=== PATIENT | male | born 1960 | race Caucasian/White ===

== ENCOUNTER 2017-04-14 09:09 | Emergency (ER) | payer BC, OTHER ==
[~2017-04-14] VITALS: Ht 172.7 cm; Wt 80.4 kg
[~2017-04-14 09:09] MED LIST: LRT5 PO
[2017-04-14 09:15] VITALS: TEMP 36.5; Ht 172.7 cm; Wt 80.4 kg
[2017-04-14] MEDS ORDERED: KETOROLAC TROMETHAMINE 30 MG/ML VIAL IV STA (09:48)
[2017-04-14] MEDS ORDERED: MULT-506 PO (09:52)
[2017-04-14] MEDS ORDERED: OMEG10007 PO (09:52)
[2017-04-14] MEDS ORDERED: ASPCH81X PO (09:52)
[2017-04-14 10:13] LABS: BASO % 0.6 %; BASO ABS # 0.05 K/uL (0-0.2); COMPLETE YES; EOS % 1.8 %; HEMATOCRIT 47.5 % (42-52); IG% 0.1 %; LYMPH % 17.5 %; LYMPH ABS # 1.43 K/uL (1.2-3.4); MEAN CELL VOLUME 92.4 fL (80-100); MEAN CORPUSCULAR HEMOGLOBIN 31.7 pg (25-34); MEAN CORPUSCULAR HGB CONC 34.3 g/dl (32-36); MEAN PLATELET VOLUME 11.2 fL (7.4-10.4); MONO % 9.1 %; NEUT % 70.9 %; PLATELET COUNT 205 K/uL (130-400); RED BLOOD COUNT 5.14 M/uL (4.7-6.1); WHITE BLOOD COUNT 8.17 K/uL (4.8-10.8)
--- NOTE | 2017-04-14 10:26 | DIAGNOSTIC IMAGING REPORT ---
CT SCAN OF THE ABDOMEN AND PELVIS WITHOUT IV CONTRAST CLINICAL HISTORY: Low back pain. Dysuria. COMPARISON STUDY: No priors. TECHNIQUE: CT scan of the abdomen and pelvis is performed from the lung bases to the proximal femora. Images are reviewed in the axial, sagittal, and coronal planes. IV contrast was not administered for this examination. Automated dose control exposure was utilized. CT DOSE: 768.68 mGy.cm FINDINGS: Lung bases: The heart is enlarged and without pericardial effusion. A calcified granulomas noted in the right lung base. The lung bases are otherwise clear. There is a tiny hiatal hernia. Liver: The unenhanced liver is mildly enlarged measuring 19.5 cm in length. The liver is normal in contour and attenuation. There is no intrahepatic biliary ductal dilatation. Numerous hepatic cysts measure up to 1.4 cm. Too numerous to count additional subcentimeter hepatic hypodensities also likely represent cysts or biliary hamartomas. Gallbladder: Unremarkable. Spleen: Normal in size and attenuation. Pancreas: Unremarkable. Adrenal glands: Unremarkable. Kidneys: The unenhanced kidneys are normal in size. There is a 5 mm obstructing calculus at the left vesicoureteral junction seen on image #371. This causes mild to moderate left-sided hydroureteronephrosis. No additional left renal calculi are identified. There is mild associated left-sided perinephric stranding. No right renal calculi are seen and there is no right-sided hydronephrosis. There are no renal calculi identified. 1.5 cm cyst is noted in the left upper pole. Abdominal vasculature: The abdominal aorta is normal in course and caliber noting mild atherosclerotic calcification. Bowel: The small bowel and colon are normal in course and caliber. The appendix is well-visualized and normal. Peritoneum: There is no intraperitoneal free air or abdominal ascites. There is a small fat-containing umbilical hernia. Lymphadenopathy: None. Pelvic viscera: The bladder, bladder, prostate, and seminal vesicles are normal as imaged. Skeletal structures: No lytic or blastic lesions are seen. Spondylotic change with endplate sclerosis is seen at L5-S1. IMPRESSION: 1. There is a 5 mm obstructing calculus at the left vesicoureteral junction. This causes mild to moderate left-sided hydroureteronephrosis. 2. No additional calculi are seen either kidney. 3. Cardiomegaly. 4. There are numerous small hepatic cysts. Numerous additional subcentimeter hepatic hypodensities likely represent cysts or biliary hamartomas. These are of doubtful significance if there is no cancer history. 5. Additional findings as above. Electronically signed by: Kristian Ulloa M.D. 04/14/2017 10:25 AM Dictated Date/Time: 04/14/2017 10:18 AM
[2017-04-14 10:29] LABS: BUN/CREATININE RATIO 13.9 (10-20); CALCIUM 10.1 mg/dl (8.5-10.1); CREATININE 1.1 mg/dl (0.60-1.40); POTASSIUM 3.8 mmol/L (3.5-5.1)
[2017-04-14 10:32] LABS: URINE APPEARANCE CLEAR (CLEAR); URINE BILIRUBIN NEG (NEG); URINE COLOR YELLOW; URINE NITRITE NEG (NEG); URINE SPECIFIC GRAVITY 1.018 (1.000-1.030); UROBILINOGEN NEG (NEG); ZZUR CULT IF INDIC CLEAN CATCH NO
[2017-04-14 10:35] LABS: MANUAL MICROSCOPIC REQUIRED? NO; REVIEW REQ? NO
[2017-04-14] MEDS ORDERED: TAMS0.4C38 PO (11:01)
[2017-04-14] MEDS ORDERED: OXYC1TAB3 PO (11:01)
--- NOTE | 2017-04-14 11:02 | EMERGENCY ROOM VISIT NOTE ---
History First contact with patient: 09:21 Chief Complaint: BACK PAIN Stated Complaint: PAIN IN LOWER BACK - POSSIBLE KIDNEY STONES History of Present Illness The patient is a 57 year old male who presents to the Emergency Room with complaints of left low back pain which started on . The patient denies any specific injury but does admit that he was lifting heavy cement bags prior to the onset of his symptoms. He states he has had 3 episodes of increased pain in the left lower back. He denies any nausea or vomiting. The patient took Tylenol this morning with some relief of the pain. He has an appointment scheduled with his family doctor at 11 AM today the states since the pain was intense this morning he decided to come to the emergency room. The patient also admits to some dysuria but denies any hematuria, urgency or frequency. The patient denies any history of kidney stones. The patient denies any urethral discharge, or history of STDs. Review of Systems 10 system review was performed and was negative unless stated otherwise history of present illness. Past Medical/Surgical History Ankle surgery, hernia repair, knee surgery Social History Smoking Status: Never Smoker Smokeless Tobacco Use: No Alcohol Use: none Drug Use: none Marital Status: Housing Status: lives with family Occupation Status: employed Current/Historical Medications Scheduled Aspirin (Aspirin Chewable), 81 MG PO DAILY Multivitamin (Multivitamin), 1 TAB PO DAILY Tamsulosin Hcl (Flomax), 0.4 MG PO DAILY Scheduled PRN Oxycodone Immediate Rel Tab (Roxicodone Ir), 1-2 TAB PO Q6 PRN for Pain Miscellaneous Medications Fish Oil (Letha-3), 1 CAP PO Allergies Coded Allergies: No Known Allergies (Unverified , 04/14/17) Physical Exam Vital Signs Date Time Temp Pulse Resp B/P (MAP) Pulse Ox O2 Delivery O2 Flow Rate FiO2 04/14/17 10:44 85 16 147/94 98 Room Air 04/14/17 09:15 36.5 64 18 151/79 97 Room Air Physical Exam GENERAL: 57-year-old white male appears in no acute distress. MENTAL Status: Alert and oriented 3. MOUTH: Mucosa is moist NECK: Supple, no lymphadenopathy noted. No carotid bruits noted. LUNGS: Clear auscultation without wheezes rales or rhonchi. CARDIAC: Regular rate and rhythm without murmur. Pulses is full and equal throughout. BACK: No CVA tenderness noted. ABDOMEN: Positive bowel sounds all 4 quadrants. Soft, nontender to palpation without organomegaly or masses. LUMBAR SPINE: No gross bony deformity noted. The patient is nontender to palpation over the spinous processes. He has tenderness to palpation in the lower left paravertebral region. Right side nontender. Full range of motion with minimal pain elicited. Negative straight leg raise bilaterally. Patient is able to heel and toe walk without difficulty. Bilateral patellar and Achilles reflexes are 2+. Muscle strength is 5 out of 5 bilateral lower extremities and symmetrical. EXTREMITIES: No cyanosis or edema noted. Medical Decision & Procedures ER Provider Diagnostic Interpretation: CT SCAN OF THE ABDOMEN AND PELVIS WITHOUT IV CONTRAST CLINICAL HISTORY: Low back pain. Dysuria. COMPARISON STUDY: No priors. TECHNIQUE: CT scan of the abdomen and pelvis is performed from the lung bases to the proximal femora. Images are reviewed in the axial, sagittal, and coronal planes. IV contrast was not administered for this examination. Automated dose control exposure was utilized. CT DOSE: 768.68 mGy.cm FINDINGS: Lung bases: The heart is enlarged and without pericardial effusion. A calcified granulomas noted in the right lung base. The lung bases are otherwise clear. There is a tiny hiatal hernia. Liver: The unenhanced liver is mildly enlarged measuring 19.5 cm in length. The liver is normal in contour and attenuation. There is no intrahepatic biliary ductal dilatation. Numerous hepatic cysts measure up to 1.4 cm. Too numerous to count additional subcentimeter hepatic hypodensities also likely represent cysts or biliary hamartomas. Gallbladder: Unremarkable. Spleen: Normal in size and attenuation. Pancreas: Unremarkable. Adrenal glands: Unremarkable. Kidneys: The unenhanced kidneys are normal in size. There is a 5 mm obstructing calculus at the left vesicoureteral junction seen on image #371. This causes mild to moderate left-sided hydroureteronephrosis. No additional left renal calculi are identified. There is mild associated left-sided perinephric stranding. No right renal calculi are seen and there is no right-sided hydronephrosis. There are no renal calculi identified. 1.5 cm cyst is noted in the left upper pole. Abdominal vasculature: The abdominal aorta is normal in course and caliber noting mild atherosclerotic calcification. Bowel: The small bowel and colon are normal in course and caliber. The appendix is well-visualized and normal. Peritoneum: There is no intraperitoneal free air or abdominal ascites. There is a small fat-containing umbilical hernia. Lymphadenopathy: None. Pelvic viscera: The bladder, bladder, prostate, and seminal vesicles are normal as imaged. Skeletal structures: No lytic or blastic lesions are seen. Spondylotic change with endplate sclerosis is seen at L5-S1. IMPRESSION: 1. There is a 5 mm obstructing calculus at the left vesicoureteral junction. This causes mild to moderate left-sided hydroureteronephrosis. 2. No additional calculi are seen either kidney. 3. Cardiomegaly. 4. There are numerous small hepatic cysts. Numerous additional subcentimeter hepatic hypodensities likely represent cysts or biliary hamartomas. These are of doubtful significance if there is no cancer history. 5. Additional findings as above. Electronically signed by: Kristian Ulloa M.D. 04/14/2017 10:25 AM Dictated Date/Time: 04/14/2017 10:18 AM Laboratory Results 04/14/17 09:53 Red Blood Count 5.14, Mean Corpuscular Volume 92.4, Mean Corpuscular Hemoglobin 31.7, Mean Corpuscular Hemoglobin Concent 34.3, Mean Platelet Volume 11.2, Neutrophils (%) (Auto) 70.9, Lymphocytes (%) (Auto) 17.5, Monocytes (%) (Auto) 9.1, Eosinophils (%) (Auto) 1.8, Basophils (%) (Auto) 0.6, Neutrophils # (Auto) 5.79, Lymphocytes # (Auto) 1.43, Monocytes # (Auto) 0.74, Eosinophils # (Auto) 0.15, Basophils # (Auto) 0.05 04/14/17 09:53 Test 04/14/17 09:41 04/14/17 09:53 Urine Color YELLOW Urine Appearance CLEAR (CLEAR) Urine pH 6.0 (4.5-7.5) Urine Specific [place] 1.018 (1.000-1.030) Urine Protein NEG (NEG) Urine Glucose (UA) NEG (NEG) Urine Ketones NEG (NEG) Urine Occult Blood NEG (NEG) Urine Nitrite NEG (NEG) Urine Bilirubin NEG (NEG) Urine Urobilinogen NEG (NEG) Urine Leukocyte Esterase NEG (NEG) White Blood Count 8.17 K/uL (4.8-10.8) Red Blood Count 5.14 M/uL (4.7-6.1) Hemoglobin 16.3 g/dL (14.0-18.0) Hematocrit 47.5 % (42-52) Mean Corpuscular Volume 92.4 fL (80-100) Mean Corpuscular Hemoglobin 31.7 pg (25-34) Mean Corpuscular Hemoglobin Concent 34.3 g/dl (32-36) Platelet Count 205 K/uL (130-400) Mean Platelet Volume 11.2 fL (7.4-10.4) Neutrophils (%) (Auto) 70.9 % Lymphocytes (%) (Auto) 17.5 % Monocytes (%) (Auto) 9.1 % Eosinophils (%) (Auto) 1.8 % Basophils (%) (Auto) 0.6 % Neutrophils # (Auto) 5.79 K/uL (1.4-6.5) Lymphocytes # (Auto) 1.43 K/uL (1.2-3.4) Monocytes # (Auto) 0.74 K/uL (0.11-0.59) Eosinophils # (Auto) 0.15 K/uL (0-0.5) Basophils # (Auto) 0.05 K/uL (0-0.2) RDW Standard Deviation 42.3 fL (36.4-46.3) RDW Coefficient of Variation 12.6 % (11.5-14.5) Immature Granulocyte % (Auto) 0.1 % Immature Granulocyte # (Auto) 0.01 K/uL (0.00-0.02) Anion Gap 7.0 mmol/L (3-11) Est Creatinine Clear Calc Drug Dose 73.4 ml/min Estimated GFR () 87.1 Estimated GFR (Non- 75.2 BUN/Creatinine Ratio 13.9 (10-20) Calcium Level 10.1 mg/dl (8.5-10.1) Medications Administered Medications (Trade) Dose Ordered Sig/Luis Route Start Time Stop Time Status Last Admin Dose Admin Ketorolac Tromethamine (Toradol Inj) 30 mg NOW STAT IV 04/14/17 09:48 04/14/17 09:49 DC 04/14/17 09:52 30 MG ED Course The patient was evaluated. The patient's EMR and medication list were reviewed. IV access was obtained. CBC and differential, renal ,urinalysis was ordered. The patient was given Toradol 30 mg IV for pain. CT stone so he was ordered and interpreted by the radiologist as above with evidence of a 5 mm stone at the left UV junction with mild hydronephrosis. The patient was informed of the findings. Labs are reviewed and were unremarkable. Urinalysis was negative. The patient was reevaluated on several occasions throughout his emergency room stay. The patient was discharged home in stable condition. Medical Decision Differential diagnosis include lumbar strain, sciatica, UTI, ureteral calculi, diverticulitis Impression Primary Impression: Ureteral calculus, left Departure Information Dispostion Home / Self-Care Condition GOOD Prescriptions Oxycodone Immediate Rel Tab (ROXICODONE IR) 5 Mg Tab 1-2 TAB PO Q6 Y for Pain, #20 TAB Prov: Lily Smith PA-C 04/14/17 Tamsulosin Hcl (FLOMAX) 0.4 Mg Cap 0.4 MG PO DAILY for 7 Days, #7 CAP Prov: Lily Smith PA-C 04/14/17 Referrals Emigdio Jimenez M.D. (PCP) Forms HOME CARE DOCUMENTATION FORM, IMPORTANT VISIT INFORMATION Patient Instructions Kidney Stones - [facility], [facility] Additional Instructions Strain all urine. Push fluids. Take Flomax daily as prescribed. Ibuprofen 600 mg every 6 hours with food for pain. Take OxyIR as needed for more severe pain. Do not drive while taking the OxyIR. Take Zofran as needed for nausea. If you do not pass the stone in 5-7 days recommend follow-up with Dr. La, urology. if symptoms worsen in the interim, return to ER.
[2017-04-14] MEDS ORDERED: ONDANSETRON INJ 2 MG/ML 2 ML VIAL IV STA (11:03)
[2017-04-14] MEDS ORDERED: ONDA4TAB10 SL (11:05)
[2017-04-14 11:30] VITALS: BP 134/78; PULSE 55; O2SAT 96
--- NOTE | 2017-04-18 11:32 | Pharmacy Progress Note ---
ED Pharmacist Progress Note Date of Service: Apr 18, 2017. Patient called today with concern that he is running out of Zofran ODT and the weekend is approaching. He does not have an appointment to see his urologist until Friday. He does not believe he has passed the kidney stone and was requesting a refill on just the Zofran. I reviewed the case with Dr Adrian, who was agreeable to give the patient an additional 10 tablets with the same dose and directions. I called in Rx to [facility] ([phone]) for: Zofran 4mg ODT 1 tab SL Q 6 hrs PRN nausea/vomiting # 10, No Refills, auth by Dr Donaldo Adrian.
== END 2017-04-14 11:35 | disposition home or self-care (01) ==
LOC: C.EDB 09:11
DX: N20.1 Calculus of ureter (principal); Z98.890 Other specified postprocedural states; Z79.82 Long term (current) use of aspirin

== ENCOUNTER → 2017-04-21 | Outpatient (CLI) | payer OTHER ==
[~2017-04-21] MED LIST changes: +ASPCH81X PO; -LRT5 PO; +MULT-506 PO; +OMEG10007 PO; +ONDA4TAB10 SL; +OXYC1TAB3 PO; +TAMS0.4C38 PO
--- NOTE | 2017-04-21 18:48 | DIAGNOSTIC IMAGING REPORT ---
CHEST 2 VIEWS ROUTINE CLINICAL HISTORY: Preoperative evaluation. Nephrolithiasis. COMPARISON STUDY: Chest radiograph March 20, 2009. FINDINGS: Lung volumes are normal. There is no consolidation to suggest pneumonia and there is no evidence of pulmonary edema. Cardiac size is normal. Mediastinal contours are normal. IMPRESSION: No acute cardiopulmonary findings. Electronically signed by: Cisco Dao M.D. 04/21/2017 6:47 PM Dictated Date/Time: 04/21/2017 6:46 PM
--- NOTE | 2017-04-21 18:50 | DIAGNOSTIC IMAGING REPORT ---
KUB CLINICAL HISTORY: Nephrolithiasis. COMPARISON STUDY: CT of the abdomen and pelvis April 14, 2017. FINDINGS: The 5 mm distal left ureteral calculus shown on CT of April 14, 2017 is not visualized on this examination. A right pelvic calcification represents a phlebolith. Bowel gas pattern is normal. No urinary calculi are identified. IMPRESSION: No urinary calculi identified. The 5 mm distal left ureteral calculus shown on prior CT is not visualized on this exam. Electronically signed by: Cisco Dao M.D. 04/21/2017 6:48 PM Dictated Date/Time: 04/21/2017 6:47 PM
== END | disposition home or self-care (01) ==
LOC: C.RAD 17:55
PROVIDERS: ATTEND Urology
DX: N20.0 Calculus of kidney (principal)

== ENCOUNTER → 2017-04-25 | Day surgery (SDC) | payer OTHER ==
[2017-04-23 10:21] VITALS: Ht 172.7 cm; Wt 77.3 kg
[~2017-04-25] VITALS: Ht 172.7 cm; Wt 77.3 kg
[~2017-04-25] MED LIST changes: +ATROPINE SULFATE 0.1 MG/ML 5ML SYR IV PRN; +CIPROFLOXACIN 400MG / D5W IV SCH; +DEXAMETHASONE SOD INJ 4 MG/ML VIAL IV PRN; +EpHEDrine SULFATE INJ 50 MG/ML AMP IV PRN; +FENTANYL CITRATE INJ 50 MCG/1 ML 2 ML VIAL IV PRN; +KETOROLAC TROMETHAMINE 30 MG/ML VIAL IV. PRN; +LABETALOL HCL IV 5 MG/ML 20ML IV PRN; +LACTATED RINGER'S 1000ML 1,000 ML IV SCH; +METOCLOPRAMIDE HCL INJ 5 MG/ML 2 ML VIAL IV PRN; +MoRPHine SULFATE 10 MG/ML CARP/VIAL IV PRN; +ONDANSETRON INJ 2 MG/ML 2 ML VIAL IV PRN; +PHENYLEPHRINE 100MCG/ML 5ML SYR IV PRN; -TAMS0.4C38 PO
[2017-04-25 09:57] VITALS: BP 105/71; PULSE 87; TEMP 36.9; O2SAT 97
--- NOTE | 2017-04-25 10:10 | DIAGNOSTIC IMAGING REPORT ---
KUB CLINICAL HISTORY: 57 years-old Male presenting with nephrolithiasis. TECHNIQUE: Single supine view of the abdomen was obtained. COMPARISON: 04/21/[address] from 04/14/2017.. FINDINGS: No calcification along the expected course of the urinary collecting systems to suggest ureteral calculus. Phleboliths again noted in the pelvis. Reidel lobe configuration of the liver suspected. Normal bowel gas pattern. No free intraperitoneal gas. Osseous structures normal. Lung bases clear. IMPRESSION: 1. No urinary calculi identified. Electronically signed by: Tacho Barber 04/25/2017 10:09 AM Dictated Date/Time: 04/25/2017 10:07 AM
--- NOTE | 2017-04-25 10:34 | History & Physical Bridge Note ---
H&P Re-Evaluation Bridge Note: I have examined the patient, reviewed the History & Physical and in the interval since the performance of the History & Physical I have noted the following changes of clinical significance: No stones seen on KUB x 2, no pain, feels he might have passed stone - ESWL cancelled, f/u at postop visit as planned, no repeat KUB needed. MICHAEL
== END | disposition home or self-care (01) ==
LOC: C.LAB1850 09:21
PROVIDERS: ATTEND Urology
DX: N20.0 Calculus of kidney (principal); Z53.9 Procedure and treatment not carried out, unspecified reason; N40.0 Benign prostatic hyperplasia without lower urinary tract symptoms; Z83.3 Family history of diabetes mellitus; Z82.49 Family history of ischemic heart disease and other diseases of the circulatory system